=== PATIENT | male | born 1960 | race Caucasian/White ===

== ENCOUNTER → 2017-07-27 | Outpatient (REF) | payer OTHER ==
[2017-07-27 13:51] LABS: APPEARANCE, URINE CLEAR (CLEAR); BACTERIA, URINE AUTO 1+ (NEGATIVE); BILIRUBIN, URINE AUTO NEGATIVE (NEGATIVE); BLOOD, URINE BLOOD 1+ (NEGATIVE); COLOR, URINE YELLOW (YELLOW); GLUCOSE, URINE (UA) AUTO NEGATIVE (NEGATIVE); KETONE, URINE AUTO NEGATIVE (NEGATIVE); LEUKOCYTE ESTERASE, URINE AUTO NEGATIVE (NEGATIVE); MUCUS, URINE SMALL (NEGATIVE); NITRITE, URINE AUTO NEGATIVE (NEGATIVE); PROTEIN, URINE AUTO NEGATIVE (NEGATIVE); RBC, URINE AUTO 1 /HPF (0-3); SPECIFIC GRAVITY URINE AUTO 1.016 (1.002-1.035); SQUAMOUS EPITHELIAL CELL UR AU 0 /HPF (0-6); UROBILINOGEN, URINE AUTO 0.2 mg/dL (0.0-2.0); WBC, URINE AUTO 0 /HPF (0-3)
== END ==
LOC: M SMT 13:35
DX: R82.90 Unspecified abnormal findings in urine (principal)

== ENCOUNTER → 2017-08-04 | Outpatient (CLI) | payer OTHER | LOC: M RAD 07:12 | DX: R10.9 Unspecified abdominal pain (principal) | CPT/HCPCS: 74176 ==

== ENCOUNTER → 2018-03-24 | Outpatient (CLI) | payer BC ==
--- NOTE | 2018-04-12 06:28 | REP ---
Clinical: Pulmonary nodule. Technique: Axial noncontrast images from the thoracic inlet to the upper abdomen with coronal and sagittal re-formations. Comparison: 12/15/2016, 05/13/2016, 06/04/2015, 03/14/2015 Findings: 2-3 noncalcified nodules are identified in the the superior segment of the right lower lobe which remain stable and again measure up to 5 mm maximal diameter. No significant increase in size or conspicuity is appreciated. No new significant nodule, consolidation, or mass lesion identified. Few calcified granulomata are also identified and stable. No pleural effusion. No pneumothorax. Tracheobronchial tree is patent. Mediastinum demonstrates normal thoracic aorta, pulmonary vasculature and heart/pericardium. No adenopathy. Surrounding musculoskeletal structures are grossly intact/normal. Impression: 1. Few noncalcified and calcified nodules predominantly identified in the right hemithorax remains stable and without significant or ominous appearance. Findings suggest changes related to prior granulomatous disease. 2. No acute or significant mediastinal or pleuroparenchymal process. Electronically Signed by Elton Sapp MD 04/12/2018 06:20 A
== END ==
LOC: M RAD 12:46
PROVIDERS: ATTEND Nurse Practitioner Family
DX: R91.1 Solitary pulmonary nodule (principal)

== ENCOUNTER → 2018-06-29 | Outpatient (REF) | payer BC ==
[2018-06-29 14:33] LABS: AMYLASE 77 U/L (25-115); LIPASE 154 U/L (73-393)
== END ==
LOC: M LAB REF 12:59
PROVIDERS: ATTEND Internal Medicine
DX: R10.9 Unspecified abdominal pain (principal)

== ENCOUNTER → 2018-06-29 | Outpatient (CLI) | payer BC ==
--- NOTE | 2018-06-30 03:51 | REP ---
Clinical: Pain on deep inspiration. Technique: Frontal view of the chest with four views of the left hemithorax. Findings: Frontal view of the chest demonstrates no acute cardiopulmonary process. Multiple views of the left hemithorax demonstrates no obvious acute rib fracture or pathology. Impression: Normal left rib series Electronically Signed by Elton Sapp MD 06/30/2018 03:42 A
== END ==
LOC: M RAD 08:49
PROVIDERS: ATTEND Internal Medicine
DX: R07.81 Pleurodynia (principal)

== ENCOUNTER → 2019-04-11 | Outpatient (REF) | payer BC ==
[2019-04-12 08:06] LABS: LDL DIRECT 94 mg/dL (0-99)
== END ==
LOC: M LAB REF 12:50
PROVIDERS: ATTEND Internal Medicine
DX: C64.9 Malignant neoplasm of unspecified kidney, except renal pelvis (principal)

== ENCOUNTER → 2020-02-10 | Outpatient (REF) | payer BC ==
[2020-02-11 08:09] LABS: LDL DIRECT 101 mg/dL (0-99)
== END ==
LOC: M LAB REF 11:59
PROVIDERS: ATTEND Internal Medicine
DX: E78.00 Pure hypercholesterolemia, unspecified (principal)

== ENCOUNTER → 2020-04-19 | Outpatient (REF) | payer BC | LOC: M LAB REF 11:23 | PROVIDERS: ATTEND Internal Medicine | DX: C64.2 Malignant neoplasm of left kidney, except renal pelvis (principal) ==

== ENCOUNTER → 2020-04-30 | Outpatient (CLI) | payer BC ==
--- NOTE | 2020-04-30 11:38 | REP ---
INDICATION: MALIGNANT NEOPLASM LT KIDNEY COMPARISON: 08/04/2017 TECHNIQUE: Axial noncontrast images from the lung bases to the pubic symphysis with coronal and sagittal reformations. This CT examination was performed using the following dose reduction techniques: Automated exposure control, adjustment of mA and/or kv according to the patient's size, and use of iterative reconstruction technique. FINDINGS: Lung bases are clear. Visualized heart and pericardium normal. Liver, spleen/splenules, pancreas, gallbladder, bilateral adrenal glands and right kidney are essentially normal/stable. Left kidney demonstrates evidence for prior renal mass resection with cortical scarring and postsurgical changes along the lateral renal contour. No obvious focal recurrence or metastatic lesions are identified. The enteric system is unremarkable and without obstruction or acute inflammatory process. Normal terminal ileum and appendix identified in the right lower quadrant. Pelvis demonstrates normal bladder and age-appropriate prostate/seminal vesicles. No ascites. No free air. No adenopathy. No focal inflammatory stranding. Abdominal aorta without aneurysm. Musculoskeletal structures are intact and without acute osseous abnormality. IMPRESSION: 1. Postsurgical changes involving the left kidney consistent with partial nephrectomy. No evidence for obvious recurrence or local metastatic disease. No ascites. No adenopathy. <Electronically signed by Elton Sapp > 04/30/20 [id number]
== END ==
LOC: M RAD 10:55
DX: C64.2 Malignant neoplasm of left kidney, except renal pelvis (principal)

== ENCOUNTER → 2020-05-21 | Outpatient (CLI) | payer BC ==
--- NOTE | 2020-05-22 05:35 | REP ---
INDICATION: RT TESTIS PAIN COMPARISON: None. TECHNIQUE: Wagoner scale and color Doppler evaluation using linear and curved array transducer with color Doppler evaluation. FINDINGS: The testicles and epididymi are relatively normal in contour, size, echogenicity, vascularity and overall appearance. Incidental 4 mm left epididymal cyst. There is no evidence for intratesticular mass lesion, infectious/inflammatory process, or torsion. No obvious hydroceles or varicoceles are identified. Right testicle measures 4.2 x 2.7 x 3.5 cm. Left testicle measures 4.4 x 2.2 x 3.3 cm. IMPRESSION: Essentially normal scrotal ultrasound. <Electronically signed by Elton Sapp > 05/22/20 [id number]
== END ==
LOC: M RAD 15:19
PROVIDERS: ATTEND Nurse Practitioner
DX: N50.811 Right testicular pain (principal)

== ENCOUNTER → 2021-06-10 | Outpatient (REF) | payer BC ==
[2021-06-10 12:35] LABS: INR 0.95; PARTIAL THROMBOPLASTIN TIME 30.6 SECONDS (25.9-37.0); PROTHROMBIN TIME 13.1 SECONDS (12.7-14.5)
== END ==
LOC: M LAB REF 11:38
PROVIDERS: ATTEND Internal Medicine
DX: M79.10 Myalgia, unspecified site (principal); D69.2 Other nonthrombocytopenic purpura

== ENCOUNTER → 2022-01-01 | Outpatient (CLI) | payer BC ==
[~2022-01-01] MED LIST: ESOM40CA35 PO
== END ==
LOC: M LABSMTC 09:20
PROVIDERS: ATTEND Anesthesiology
DX: Z01.812 Encounter for preprocedural laboratory examination (principal); Z11.52 Encounter for screening for COVID-19

== ENCOUNTER 2022-01-06 12:07 | Day surgery (SDC) | payer BC ==
[~2022-01-06] VITALS: Ht 170.2 cm; Wt 106.6 kg
[~2022-01-06 12:07] MED LIST changes: +NS 1,000 ML IV ONE
[2022-01-06 13:55] VITALS: BP 142/76
== END 2022-01-06 14:15 | disposition home or self-care (01) ==
LOC: M OPP 12:07
PROVIDERS: ATTEND Internal Medicine Gastroenterology
DX: Z12.11 Encounter for screening for malignant neoplasm of colon (principal); K64.0 First degree hemorrhoids; K57.30 Diverticulosis of large intestine without perforation or abscess without bleeding; K44.9 Diaphragmatic hernia without obstruction or gangrene; K21.00 Gastro-esophageal reflux disease with esophagitis, without bleeding; Z79.899 Other long term (current) drug therapy; Z88.0 Allergy status to penicillin; Z80.1 Family history of malignant neoplasm of trachea, bronchus and lung

== ENCOUNTER → 2024-11-03 | Outpatient (REF) | payer OTHER ==
[~2024-11-03] MED LIST changes: -NS 1,000 ML IV ONE
== END ==
LOC: M LAB REF 17:28
PROVIDERS: ATTEND Internal Medicine
DX: A69.23 Arthritis due to Lyme disease (principal)